=== PATIENT | male | born 1960 | race Caucasian/White ===

== ENCOUNTER 2024-08-25 15:59 | Outpatient (OUT) | payer BC, SELFPAY ==
--- OUTSIDE RECORDS SUMMARY | 2024-08-25 16:03 | XMS_ITS | Clinical Summary ---
Author Organization [facility] Address [address] [place] [address] Phone Care Team Providers Care Shipbuilding Draftsperson Name Role Phone Unavailable Primary Care Provider Unavailabl e Allergies No known active allergies Medications tadalafil (Cialis) 10 mg tabletIndication s:erectile dysfunction Take 1 tablet (10 mg) by mouth if needed for erectile dysfunction (Never exceed more then 20mg. Report to ED with severe CP or SOB.). Take orally PRN for sexual function. 30 tablet 3 4 Active Social History Tobacco Use Types Packs/Day Years Used Date Smoking Tobacco: Never Assessed Sex and Gender Information Value Date Recorded Sex Assigned at Not on file Legal Sex Male 8:27 AM EST Gender Identity Not on file Sexual Orientation Not on file Last Filed Vital Signs Vital Sign Reading Time Taken Comments Blood Pressure 166/80 01/27/2021 1:00 PM EDT Pulse 68 01/27/2021 1:00 PM EDT Temperature 36.7 C (98.1 F) 01/27/2021 1:00 PM EDT Respiratory Rate 18 01/27/2021 1:00 PM EDT Oxygen Saturation 98% 01/27/2021 1:00 PM EDT Inhaled Oxygen Concentration - - Weight 76.8 kg (169 lb 5 oz) 01/27/2021 1:00 PM EDT Height 172 cm (5' 7.72 ) 01/27/2021 1:00 PM EDT Body Mass Index 25.96 01/27/2021 1:00 PM EDT Plan of Treatment Upcoming Encounters Date Type Department Care Team (Late st Contact Info) Description 09/11/2024 4:00 PM EDT Appointment [facility] [address] [place] [id number] AlexyMajor faulkner Yudi, FACILITIES OPERATIONS TECHNICIAN-MALTSTER [address] Department [place] [address] Health Maintenance Due Date Last Done Comments CT Colonography 1960 Colonoscopy 1960 Colorectal Cancer Screening 1960 FIT-DNA (Cologuard) 1960 FIT 1960 HIV Screening 1960 Lipid Panel 1960 Sigmoidoscopy 1960 Yearly Adult Physical 1960 MMR Vaccines (1 of 1 - Stand christofer series) 1961 Hepatitis C Screening 1978 DTaP/Tdap/Td Vaccines (1 - Tdap) 1982 Pneumococcal Vaccine (1 of 1 - PCV) 2010 Zoster Vaccines (1 of 2) 2010 COVID-19 Vaccine (1 - 2023-2 5 season) 2023 Influenza Vaccine (Season Ended) 2024 RSV High Risk: (Elderly (60+ ) or Population) (1 - 1-dose 75+ series) 08/13/2035 HIB Vaccines Aged Out No longer eligi ble based on patient's age to complete this topic HPV Vaccines Aged Out No longer eligi ble based on patient's age to complete this topic Hepatitis A Vaccines Aged Out No long er eligible based on patient's age to complete this topic Hepatitis B Vaccines Aged Out No long er eligible based on patient's age to complete this topic IPV Vaccines Aged Out No longer eligi ble based on patient's age to complete this topic Meningococcal Vaccine Aged Out No kavitha wilton eligible based on patient's age to complete this topic Rotavirus Vaccines Aged Out No longer eligible based on patient's age to complete this topic Insurance [facility]
--- OUTSIDE RECORDS SUMMARY | 2024-08-25 16:03 | XMS_ITS | Clinical Summary ---
Author Organization [facility] Address [address] [place] [address] Care Team Providers Care Medical Education Manager Name Role Phone Jeff Gómez MD Primary Care Provider [phone] Allergies No known active allergies Medications No known medications Active Problems Problem Noted Date Diagnosed Date Primary osteoarthritis of left knee 10/24/2022 Internal derangement of left knee 10/24/2022 Family History Relation Name Status Comments Father Mother Alive Social History Tobacco Use Types Packs/Day Years Used Date Smoking Tobacco: Former Cigarettes 1 5 Smokeless Tobacco: Never Tobacco Cessation:Counseling Given: Not Answered Comments:Last smoked: >10 years Alcohol Use Standard Drinks/Week Comments Not Currently 0 (1 standard drink = 0.6 oz pur e alcohol) 2-3 times a week Sex and Gender Information Value Date Recorded Sex Assigned at Male 10/18/2022 8:49 AM EDT Legal Sex Male 6:40 PM EDT Gender Identity Male 10/18/2022 8:49 AM EDT Sexual Orientation Straight 10/18/2022 8: 49 AM EDT Last Filed Vital Signs Vital Sign Reading Time Taken Comments Blood Pressure - - Pulse - - Temperature - - Respiratory Rate - - Oxygen Saturation - - Inhaled Oxygen Concentration - - Weight 77.1 kg (170 lb) 10/25/2022 9:49 AM EDT Height 172.7 cm (5' 8 ) 10/25/2022 9:49 AM EDT Body Mass Index 25.85 10/25/2022 9:49 AM EDT Plan of Treatment Health Maintenance Due Date Last Done Comments CT Colonography 1960 Colonoscopy 1960 Colorectal Cancer Screening 1960 FIT-DNA 1960 FIT 1960 FOBT 1960 Sigmoidoscopy 1960 Influenza Vaccine (Season Ended) 2024 Insurance BCBS Care Teams Medical Education Manager Relationship Specialty Start Date End Date Jeff Gómez MD PCP - General Family Medicine 10/24/22
--- OUTSIDE RECORDS SUMMARY | 2024-08-25 16:03 | XMS_ITS | Clinical Summary ---
Author Organization [facility] Address [id number] [address] [place] [address] Care Team Providers Care Hot Strip Mill Inspector Name Role Phone Jeff Gómez MD Primary Care Provider [phone] Allergies No known active allergies Medications No known medications Active Problems No known active problems Family History Medical History Relation Name Comments Hypertension Father Kidney disease Mother Cancer Sister breast Relation Name Status Comments Father Mother Sister Alive Social History Tobacco Use Types Packs/Day Years Used Date Smoking Tobacco: Never Smokeless Tobacco: Never Tobacco Cessation:Counseling Given: Not Answered Alcohol Use Standard Drinks/Week Comments Not Currently 0 (1 standard drink = 0.6 oz pur e alcohol) Childcare Answer Date Recorded Childcare Unknown 09/03/2018 Employment Answer Date Recorded Employment Unknown 09/03/2018 Sex and Gender Information Value Date Recorded Sex Assigned at Not on file Legal Sex Male 10:09 AM EDT Gender Identity Not on file Sexual Orientation Not on file Last Filed Vital Signs Vital Sign Reading Time Taken Comments Blood Pressure 166/93 11/07/2022 1:55 PM EDT Pulse 73 11/07/2022 1:55 PM EDT Temperature 36.6 C (97.9 F) 11/07/2022 12:41 PM EDT Respiratory Rate 14 11/07/2022 1:55 PM EDT Oxygen Saturation 99% 11/07/2022 1:55 PM EDT Inhaled Oxygen Concentration - - Weight 77.1 kg (170 lb) 11/07/2022 11:13 AM EDT Height 172.7 cm (5' 8 ) 11/07/2022 11:13 AM EDT Body Mass Index 25.85 11/07/2022 11:13 AM EDT Plan of Treatment Health Maintenance Due Date Last Done Comments Depression Screening 1972 DTaP,Tdap and Td Vaccines (1 - Tdap) 08/13/1979 Zoster (Shingles) Vaccine (1 of 2) 2010 Adult BMI Screening 11/08/2023 11/07/2022 Tobacco Screening 11/08/2023 11/07/2022 Influenza Vaccine 11/23/2024 Medical Devices Not on file Insurance Care Teams Hot Strip Mill Inspector Relationship Specialty Start Date End Date Jeff Gómez MD [address] [place] [address] PCP - General Family Medicine 11/07/22
--- OUTSIDE RECORDS SUMMARY | 2024-08-25 16:03 | XMS_ITS | Encounter Summary ---
Author Organization [facility] Address [address] [place] [address] Care Team Providers Care Cat Sitter Name Role Phone Jeff Gómez MD Primary Care Provider [phone] Encounter Details Date Type Department Care Team (Late st Contact Info) Description 02/12/2023 Abstract [facility] [address] [place] [id number] Ruby Moore NP Social History Tobacco Use Types Packs/Day Years [...] Orientation Straight 10/18/2022 8: 49 AM EDT documented as of this encounter Plan of Treatment Not on file documented as of this encounter Visit Diagnoses Not on filedocumented in this encounter Care Teams Cat Sitter Relationship Specialty Start Date End Date Jeff Gómez MD PCP - General Family Medicine 10/24/22 documented as of this encounter
== END 2024-08-25 16:00 | disposition home or self-care (01) ==
PROVIDERS: PCP Family Medicine; Visit Provider Nurse Practitioner Family
DX: C61 Malignant neoplasm of prostate (principal)
CPT/HCPCS: 36415; 84153